=== PATIENT | male | born 1995 | race Caucasian/White ===

== ENCOUNTER 2022-08-05 10:57 | Emergency (ER) | payer MEDICAID, SELFPAY ==
[2022-08-05 11:36] VITALS: BP 149/97; PULSE 80; RESP 16; TEMP 37.1; O2SAT 99
--- NOTE | 2022-08-05 12:33 | ED.URI ---
HPI - URI/Sore Throat General Chief Complaint: Upper Respiratory Infection Stated Complaint: coughing blood Time Seen by Provider: 08/05/22 11:50 Source: patient Mode of arrival: ambulatory Limitations: no limitations History of Present Illness HPI Narrative: Mr. Simon is a 27-year-old male patient presenting to the clinic today with complaints of coughing up some blood this morning he reports that he thought he may be having a sinus infection but he is also got some pain to his left side of his throat and ear. He denies any fever or chills. States he is coughing up bright red blood. States that he has been coughing up some pinkish tinged blood over the past few days however today it was bright red so he came in to be evaluated MD elicited complaint: sore throat and nasal congestion Related Data Allergies Allergy/AdvReac Type Severity Reaction Status Date / Time No Known Allergies Allergy Verified 08/05/22 11:47 Review of Systems Review of Systems: Pertinent positives per HPI. Patient denies any fever, chills, rash, headache, visual changes, dizziness, shortness of breath, chest pain, palpitations, nausea, vomiting, diarrhea, constipation, abdominal pain, or any urinary issues. PMFSH Comments At the time of my signature, I reviewed and agree with the nursing past medical, surgical, social, and family history. There is no relevant family history pertinent to the patient complaint. Exam Narrative: General: Well-developed, well nourished, in no apparent distress Head: Normocephalic, atraumatic Eyes: Pupils equally round and reactive to light bilaterally, EOM intact, sclera and conjunctive clear, no discharge, lids normal Ears: TMs intact and clear, ear canals ceruminous, no drainage, grossly hearing normal. Nose: Nares patent, no discharge, no inflammation, no sinus tenderness. Mouth: Oral pharynx without lesions or masses, poor dentition, MMM. Left tonsil with white/yellow exudate, left tonsil is fragile. Appears to be ulcerated/erythemic with brownish-black tissue as well, has foul-smelling halitosis Neck: Supple, trachea midline, enlargement of left anterior cervical nodes, no thyroid masses or goiter palpable. Cardio: Regular rate and rhythm, s1 and s2 normal, no murmur appreciated. Resp: Clear to auscultation bilaterally, no rhonchi, rales, wheezing or rubs Course Course Emergency Course: Portions of this record may have been created with voice recognition software. Level of Care: Express Care Visit Vital Signs Vital signs: Vital Signs Temperature 37.1 C 08/05/22 11:36 Pulse Rate 80 08/05/22 11:36 Respiratory Rate 16 08/05/22 11:36 Blood Pressure 149/97 H 08/05/22 11:36 Pulse Oximetry 99 08/05/22 11:36 Oxygen Delivery Room Air 08/05/22 11:36 Temperature 37.1 C 08/05/22 11:36 Pulse Rate 80 08/05/22 11:36 Respiratory Rate 16 08/05/22 11:36 Blood Pressure 149/97 H 08/05/22 11:36 Pulse Oximetry 99 08/05/22 11:36 Oxygen Delivery Room Air 08/05/22 11:36 Vital signs reviewed MDM - URI/Sore Throat MDM Narrative Medical decision making narrative: At the time of visit patient is resting comfortably on the exam table. He has even rise and fall of the uvula and it is midline. No sign of peritonsillar abscess. strep screen was obtained to rule out strep however the patient has swollen left tonsil with redness and ulcerated tissue that appears to be brown/black-tonsil is very fragile and is bleeding after strep screen .I will place the patient on some Augmentin and have him follow-up with ENT. Supportive measures were discussed with the patient he voiced understanding of discharge instructions and agrees to treatment plan Differential Diagnosis Differential diagnosis: Likely upper respiratory infection, otitis media, sinusitis, viral infection, bronchitis, influenza, pharyngitis and other (COVID) Lab Data Labs: Strep Screen Presumptive Negative
== END 2022-08-05 12:45 | disposition home or self-care (01) ==
PROVIDERS: Emergency Provider Nurse Practitioner Family
DX: J03.90 Acute tonsillitis, unspecified (principal)
CPT/HCPCS: 87081; 87880; 99213; G0463